=== PATIENT | female | born 1970 | race Caucasian/White ===

== ENCOUNTER 2016-10-05 16:25 | Emergency (ER) | payer MEDICARE ==
--- NOTE | ~2016-10-05 | EKG ---
PATIENT: TOBY MIRANDA UNIT #: [id number] Ventricular Rate: 100 BPM Atrial Rate: 100 BPM P-R Interval: 128 ms QRS Duration: 76 ms Q-T Interval: 366 ms QTC Calculation(Bezet): 472 ms P [place]: 77 degrees Calculated R [place]: 77 degrees Calculated T [place]: 76 degrees Diagnosis Line: Normal sinus rhythm Diagnosis Line: Normal ECG Diagnosis Line: When compared with ECG of 07-AUG-2011 22:23, Diagnosis Line: Nonspecific T wave abnormality no longer evident Diagnosis Line: in Anterolateral leads Diagnosis Line: Confirmed by JOLANTA CARSON MD ([id number]) on 10/13/2016 Diagnosis Line: 11:52:36 AM INTERPRETING MD: YAMILETH VEGA
--- NOTE | ~2016-10-05 | CR63 ---
[facility] A Service of [facility] RADIOLOGY TEXT RESULTS PATIENT: TOBY MIRANDA LOCATION: SED : 68 UNIT #: [id number] AGE: [address]: Deborah Penny SEX: F ORDER DR: [id number] [place] [id number] E MR#: [id number] #: [id number] NAME: TOBY MIRANDA : 1970 SEX: F STUDY DATE/TIME: 10/05/2016 17:43 UNIT: SED ROOM: STUDY DESCRIPTION: CR Chest 2 View Attending Physician: Deborah Penny Pa-C Ordering Physician: Deborah Penny Pa-C Primary Care Physician: No Primary Care Physician MEDICAL IMAGING REPORT This report is preliminary unless electronic signature is present. EXAM PA and lateral chest INDICATIONS Cough, chest pain and palpitations. Been feeling sick for 1-1/2 weeks. COMPARISON 08/07/2011 FINDINGS There is patchy airspace infiltrate in the lingula consistent with pneumonia. Follow up to clearing is recommended. Heart size is normal. Visualized osseous structures are unremarkable. IMPRESSION Patchy airspace infiltrate within the lingula consistent with pneumonia. Follow up to clearing is recommended. Dictated by... Sudheer Ghotra M.D. THIS IS AN ELECTRONICALLY VERIFIED REPORT Sudheer Ghotra M.D. at 10/06/2016 7:55 AM OPAL/[place] TD: 10/05/2016 19:00 JOB #: [id number] MEDICAL IMAGING REPORT Page 1 of 1
[~2016-10-05 16:25] MED LIST: ALBUTEROL17 GM INH; AMOXICILLIN500 M1 PO; BACLOFEN10 MG PO; BACTRIM DS TABL1 TAB PO; BUDEPRION XL PO; CELEXA20 MG PO; CIPRO PO; DICYCLOMINE HCL20 MG PO; FLEXERIL10 MG PO; GABAPENTIN300 MG PO; HYDROCODON-ACE1 EAC7 PO; IBUPROFEN PO; KEFLEX500 M2 PO; KLONOPIN PO; KLONOPIN2 MG PO; LIPITOR80 MG PO; LORTAB 5/500 TA1 TA1 PO; LORTAB 5/500 TA1 TA2 PO; MACROBID100 M1 PO; NEURAXON500 MG PO; NEURONTIN PO; NEURONTIN300 MG PO; NO MEDICATIONS; NORCO 5/325 TAB1 TAB PO; PERCOCET PO; PHENERGAN PO; PREDNISONE PO; PYRIDIUM PO; PYRIDIUM100 MG PO; SEROQUEL PO; TALWIN NX TABLE1 TAB PO; VICODIN 5/500 T1 TAB PO; VOLTAREN50 MG PO; WELLBUTRIN PO; ZOCOR20 MG PO
[2016-10-05 16:47] LABS: BASOPHIL# 0.1 X10e3 (0-0.3); BASOPHIL% 0.6 % (0-2.5); EOSINOPHIL% 0.6 % (0.0-7.0); HEMATOCRIT 33.1 % (35.0-45.0); HEMOGLOBIN 11.3 gm/dL (12.0-16.0); LYMPHOCYTE# 1.4 X10e3 (1.0-3.5); LYMPHOCYTE% 15.8 % (17.0-45.0); MEAN CELL VOLUME 86.8 FL (83-96); MEAN CORPUSCULAR HEMOGLOBIN 29.5 PG (28-34); MONOCYTE# 0.4 X10e3 (0-1.0); MONOCYTE% 4.5 % (3.0-12.0); NEUTROPHIL# 6.7 X10e3 (1.5-7.1); NEUTROPHIL% 78.5 % (40-75); PLATELET COUNT 405 X10e3 (140-420); RED BLOOD COUNT 3.81 X10e (3.90-5.30); RED CELL DISTRIBUTION WIDTH 13.6 % (11.0-15.5); WHITE BLOOD COUNT 8.6 X10e3 (4.0-10.5)
[2016-10-05 16:55] LABS: DIFF IND NO
[2016-10-05 16:59] LABS: INR 1.1; PROTHROMBIN TIME (PATIENT) 12.1 SECONDS (9.5-12.4)
[2016-10-05 17:02] LABS: POC - CKMB 1.2 ng/mL (0.0-7.9); POC - TROPONIN <0.05 ng/mL (<=0.05)
[2016-10-05 17:06] LABS: PARTIAL THROMBOPLASTIN TIME 28.5 SECONDS (25.6-38.1)
[2016-10-05 17:07] LABS: ALBUMIN SERUM 3.3 g/dL (3.5-5.0); ALKALINE PHOSPHATASE 61 U/L (32-92); ALT (SGPT) 14 U/L (10-40); AST (SGOT) 15 U/L (10-42); BILIRUBIN, DIRECT <0.1 mg/dL (0.0-0.2); BILIRUBIN,TOTAL 0.1 mg/dL (0.2-2.0); BLOOD UREA NITROGEN 14 mg/dL (9-23); CALCIUM SERUM 8.3 mg/dL (8.4-10.2); CARBON DIOXIDE 27 mmol/L (22-31); CHLORIDE 101 mmol/L (100-111); CREATININE SERUM 0.8 mg/dL (0.6-1.4); GLOM FILT RATE Estimated 87.9 mL/min (>60); GLUCOSE FASTING 84 mg/dL (70-110); POTASSIUM 3.1 mmol/L (3.5-5.1); PROTEIN TOTAL SERUM 6.8 g/dL (6.0-8.3); SODIUM 131 mmol/L (135-145)
== END 2016-10-05 19:05 | disposition home or self-care (01) ==
LOC: SED 16:25
PROVIDERS: Physician Assistant Medical
DX: J18.9 Pneumonia, unspecified organism (principal); F17.210 Nicotine dependence, cigarettes, uncomplicated
CPT/HCPCS: 36415; 71020; 80048; 80076; 82553; 84484; 85025; 85379; 85610; 85730; 93005; 99284

== ENCOUNTER 2016-11-21 13:12 | Emergency (ER) | payer MEDICARE | END 2016-11-21 14:54 | disposition home or self-care (01) | LOC: SED 13:12 | DX: S61.211A Laceration without foreign body of left index finger without damage to nail, initial encounter (principal); F43.10 Post-traumatic stress disorder, unspecified; F17.210 Nicotine dependence, cigarettes, uncomplicated; Z23 Encounter for immunization; Z88.8 Allergy status to other drugs, medicaments and biological substances; X58.XXXA Exposure to other specified factors, initial encounter; Y92.009 Unspecified place in unspecified non-institutional (private) residence as the place of occurrence of the external cause | CPT/HCPCS: 12001; 90471; 90715; 99283 ==